=== PATIENT | female | born 1960 | race African-American/Black ===

== ENCOUNTER 2022-01-01 06:57 | Day surgery (SDC) | payer MEDICAID ==
[2022-01-01] VITALS (8 sets, daily range): BP systolic 94–115; BP diastolic 49–70
[~2022-01-01] VITALS: Ht 134.6 cm; Wt 82.1 kg
[~2022-01-01 06:57] MED LIST: ACE3T PO; ASPI-543 PO; CAR3125T PO; FOLI1TAB6 PO; GABA-339 PO; LISI2.5T47 PO; MELO1TAB73 PO; PANT40TA2 PO; SPIR25TA8 PO
[2022-01-01] MEDS ORDERED: fentaNYL CITRATE 100 MCG/2 ML VL ONE (08:47)
[2022-01-01] MEDS ORDERED: VERAPAMIL 2.5MG/ML INJ 2ML VIAL IV ONE (08:47)
[2022-01-01] MEDS ORDERED: ANGIOMAX 250 MG VIAL IV ONE (08:47)
[2022-01-01] MEDS ORDERED: HEPARIN SODIUM (PORCINE) 5000 UNITS/ML 1ML VIAL ONE (08:47)
[2022-01-01] MEDS ORDERED: MIDAZOLAM HCL 2MG/2ML 2ml VIAL (1mg/ml) ONE (08:47)
[2022-01-01] MEDS ORDERED: LIDOCAINE 2%HCL (LOCAL ANESTH.) INJ 10ml MDV ONE (08:48)
[2022-01-01] MEDS ORDERED: SODIUM CHL 0.9% 0 ML ONE (08:48)
[2022-01-01] MEDS ORDERED: IODIXANOL 320MG/ML 100ML BTL IV ONE (08:52)
== END 2022-01-01 11:45 | disposition home or self-care (01) ==
LOC: CATH 06:57
PROVIDERS: ATTEND Internal Medicine Cardiovascular Disease
DX: R94.39 Abnormal result of other cardiovascular function study (principal); I42.8 Other cardiomyopathies; I11.0 Hypertensive heart disease with heart failure; I50.9 Heart failure, unspecified; I25.10 Atherosclerotic heart disease of native coronary artery without angina pectoris; Z98.891 History of uterine scar from previous surgery; Z20.822 Contact with and (suspected) exposure to COVID-19
CPT/HCPCS: 93458; C1887; C1894; J1644; J2001; J2250; J3010; J7030; Q9967; U0003; 99152

== ENCOUNTER 2022-09-05 08:18 | Emergency (ER) | payer MEDICAID ==
[~2022-09-05] VITALS: Ht 162.6 cm; Wt 80.0 kg
[2022-09-05] MEDS ORDERED: IBUP600T28 PO ×2 (09:33)
[2022-09-05 09:43] VITALS: BP 120/72
[2022-09-05] MEDS ORDERED: ACETAMINOPHEN 500 MG TAB PO ONE (09:45)
[2022-09-05] MEDS ORDERED: ACET1CAP14 PO (09:46)
== END 2022-09-05 09:53 | disposition home or self-care (01) ==
LOC: ER 08:18
DX: S93.601A Unspecified sprain of right foot, initial encounter (principal); Z90.49 Acquired absence of other specified parts of digestive tract; Z86.2 Personal history of diseases of the blood and blood-forming organs and certain disorders involving the immune mechanism; Z79.1 Long term (current) use of non-steroidal anti-inflammatories (NSAID); Z79.82 Long term (current) use of aspirin; Z79.899 Other long term (current) drug therapy; W01.0XXA Fall on same level from slipping, tripping and stumbling without subsequent striking against object, initial encounter; Y93.89 Activity, other specified; Y92.89 Other specified places as the place of occurrence of the external cause; Y99.8 Other external cause status
CPT/HCPCS: 73630